=== PATIENT | male | born 1935 | race Caucasian/White ===

== ENCOUNTER 2018-06-04 15:29 | Outpatient (CLI) | payer MEDICARE, BC ==
[~2018-06-04] VITALS: Ht 177.8 cm; Wt 75.7 kg
[2018-06-04] MEDS ORDERED: albuterol 2.5 MG/3 ML nebule NEB PRN (15:45)
== END 2018-06-04 23:59 | disposition home or self-care (01) ==
LOC: RT 15:29
PROVIDERS: ATTEND Internal Medicine
DX: J44.9 Chronic obstructive pulmonary disease, unspecified (principal); Z87.891 Personal history of nicotine dependence
CPT/HCPCS: 94060; 94729; 94760

== ENCOUNTER 2021-11-22 11:48 | Emergency (ER) | payer MEDICARE, BC ==
[~2021-11-22] VITALS: Ht 177.8 cm; Wt 70.5 kg
[~2021-11-22 11:48] MED LIST: ALBU8.5H17 INH; FLO0.4C PO; FLUO60SO3 EACH EAR; FLUT1BLS10 PO; LEVO25TA7 PO; NETA2.5D3 RIGHTEYE; PANT-47 PO; TIOT18CA3 PO
[2021-11-22 12:18] VITALS: BP 102/56
--- NOTE | 2021-11-22 17:00 | NUR ---
PT WAS SEEN BY FRANCISCO SAEED EARLIER TODAY FOR LT ANKLE PAIN AND SWELLING. PT WAS DX WITH A LT DISTAL FIBULA FX AND PLACED IN A WALKING BOOT WITH INSTRUCTIONS TO CONTINUE HIS PHYSICAL THERAPY. DAUGHTER CALLED THIS AFTERNOON FROM [facility] STATING THAT THE PHYSICAL THERAPIST IS REQUESTING A NOTE STATING THAT PT CAN CONTINUE TO BE WEIGHT BARING. MONSTER LIM WAS INFORMED AND A NOTE WAS PROVIDED REQUESTED AND FAXED TO [facility] @
== END 2021-11-22 13:04 | disposition home or self-care (01) ==
LOC: ER 11:51
DX: S82.832A Other fracture of upper and lower end of left fibula, initial encounter for closed fracture (principal); M25.742 Osteophyte, left hand; J44.9 Chronic obstructive pulmonary disease, unspecified; F17.200 Nicotine dependence, unspecified, uncomplicated; Z86.73 Personal history of transient ischemic attack (TIA), and cerebral infarction without residual deficits; Z98.890 Other specified postprocedural states; Z88.8 Allergy status to other drugs, medicaments and biological substances; Z79.899 Other long term (current) drug therapy; X58.XXXA Exposure to other specified factors, initial encounter; Y93.89 Activity, other specified; Y92.89 Other specified places as the place of occurrence of the external cause; Y99.8 Other external cause status
CPT/HCPCS: 99284

== ENCOUNTER 2021-12-20 01:08 | Inpatient (IN) | payer MEDICARE, BC ==
[~2021-12-20] VITALS: Ht 177.8 cm; Wt 68.2 kg
[2021-12-20] MEDS ORDERED: methylPREDNISolone sod succ 125mg/2ml vial IV ONE (01:35)
[2021-12-20] MEDS ORDERED: ipratropium/albuterol 3ml nebule NEB ONE (01:35)
[2021-12-20] MEDS ORDERED: albuterol 2.5 MG/3 ML nebule CONTNEB PRN (01:35)
[2021-12-20 01:49] LABS: ABG BASE EXCESS 1.1 mmol/L (-2.0-2.0); ABG HCO3 28.2 mmol/L (22.0-26.0); ABG PCO2 (T) 55.3 mmHg (35.0-48.0); ABG PO2 (T) 56.9 mmHg (75.0-100.0); ALLEN'S TEST POSITIVE; FCOHb 0.5 % (0.0-3.9); FMetHb 0.2 % (0.0-1.5); FO2Hb 87.4 % (94-97); PATIENT TEMPERATURE 36.8; TOTAL HEMOGLOBIN 13.2 G/dl (14.0-18.0)
--- NOTE | 2021-12-20 02:00 | NUR ---
Daughter at bedside with patient.
[2021-12-20 02:01] LABS: BASOPHILS # (AUTO) 0.1 X10'3 (0-0.2); BASOPHILS % (AUTO) 0.4 % (0-1); EOSINOPHILS # (AUTO) 0.1 X10'3 (0-0.9); EOSINOPHILS % (AUTO) 0.7 % (0-6); HEMATOCRIT 37.7 % (42.0-52.0); HEMOGLOBIN 12.2 g/dl (14.0-17.9); LYMPHOCYTES # (AUTO) 0.7 X10'3 (1.1-4.8); LYMPHOCYTES % (AUTO) 5.5 % (21-51); MEAN CORPUSCULAR HEMOGLOBIN 30.2 PG (27.0-31.0); MEAN CORPUSCULAR HGB CONC 32.3 g/dL (33.0-36.5); MEAN CORPUSCULAR VOLUME 93.3 FL (78-98); MEAN PLATELET VOLUME 8.8 FL (7.4-10.4); MONOCYTES # (AUTO) 0.9 X10'3 (0-0.9); MONOCYTES % (AUTO) 7.7 % (2-12); NEUTROPHILS # (AUTO) 10.5 X10'3 (1.8-7.7); NEUTROPHILS % (AUTO) 85.7 % (42-75); PLATELET COUNT 284 X10'3 (140-440); RED BLOOD COUNT 4.04 X10'6 (4.70-6.10); RED CELL DISTRIBUTION WIDTH 15.4 % (11.5-14.5); WHITE BLOOD COUNT 12.2 X10'3 (4.5-11.0)
[2021-12-20 02:03] LABS: ALANINE AMINOTRANSFERASE 11 U/L (12-78); ALBUMIN 2.6 G/DL (3.4-5.0); ALBUMIN/GLOBULIN RATIO 0.6 (1.1-1.5); ANION GAP 8 (8-16); ASPARTATE AMINO TRANSFERASE 14 U/L (10-37); BILIRUBIN,TOTAL 0.2 MG/DL (0.1-1.0); BLOOD UREA NITROGEN 19 MG/DL (7-18); BUN/CREATININE RATIO 22.4 (5.4-32.0); CALCIUM 9.4 MG/DL (8.5-10.1); CHLORIDE 107 MMOL/L (99-107); CREATININE 0.85 MG/DL (0.60-1.10); GLUCOSE 146 MG/DL (70-104); SODIUM 142 MMOL/L (135-145); TOTAL CARBON DIOXIDE 27.4 MMOL/L (24-32); TOTAL PROTEIN 6.7 G/DL (6.4-8.2); eGFR 86 ML/MIN
[2021-12-20 02:04] LABS: POTASSIUM 4.3 MMOL/L (3.5-5.1)
[2021-12-20 02:08] LABS: ALKALINE PHOSPHATASE 61 IU/L (46-116)
[2021-12-20] MEDS ORDERED: normal saline 1000ML IV soln IVB ONE (02:55)
[2021-12-20 03:58] LABS: ABG BASE EXCESS 2.3 mmol/L (-2.0-2.0); ABG HCO3 27.9 mmol/L (22.0-26.0); ABG OXYGEN SATURATION 98.6 % (94-97); ABG PCO2 (T) 46.4 mmHg (35.0-48.0); ABG PO2 (T) 132.4 mmHg (75.0-100.0); ALLEN'S TEST POSITIVE; FCOHb 0.3 % (0.0-3.9); FMetHb 0.1 % (0.0-1.5); FO2Hb 98.2 % (94-97); PATIENT TEMPERATURE 36.7; RESPIRATORY RATE 10 b/min; TOTAL HEMOGLOBIN 13.1 G/dl (14.0-18.0)
[2021-12-20] MEDS ORDERED: mag hydrox/Alum hydrox/simeth 30ml oral suspension PO PRN (05:35)
[2021-12-20] MEDS ORDERED: ondansetron/PF 4mg/2ml inj IV PRN (05:35)
[2021-12-20] MEDS ORDERED: magnesium hydroxide 30ml (MOM) UD suspension PO PRN (05:35)
[2021-12-20] MEDS ORDERED: acetaminophen 325mg tablet PO PRN ×2 (05:35)
[2021-12-20] MEDS ORDERED: morphine 2 MG/ML inj. syringe IV PRN ×2 (05:35)
--- NOTE | 2021-12-20 05:42 | NUR ---
Patient refusing bipap, placed back on NC. MD and Respiratoy both paged.
[2021-12-20] MEDS: dextrose 5%-1/2 normal saline 1,000 ML IV SCH ×2 (06:28→12:03)
[2021-12-20] MEDS: enoxaparin 40mg/0.4ml syringe SUBCUT SCH (08:00)
[2021-12-20] MEDS: methylPREDNISolone sod succ 125mg/2ml vial IV SCH ×2 (08:18→23:19)
[2021-12-20] MEDS: docusate sod 100mg capsule PO SCH ×2 (08:18→23:20)
[2021-12-20] MEDS: levoFLOXACIN-Levaquin 750MG/D5 150 ML IV SCH (08:19)
[2021-12-20 11:00] VITALS: BP 134/73
[2021-12-20] MEDS: LORazepam 0.5 MG tablet PO PRN ×2 (11:58→19:09)
--- NOTE | 2021-12-20 13:15 | NUR ---
Spoke with MD Villeda - he will come see the patient later.
[2021-12-20] MEDS ORDERED: guaiFENesin 200 MG/10 ML oral syrup UD cup PO PRN (14:15)
[2021-12-20] MEDS ORDERED: bisacodyl 10mg suppository rectal RC PRN (14:15)
--- NOTE | 2021-12-20 14:16 | NUR ---
Per Dr Villeda. Ok to keep O2 between 88-92%, supp PRN, robitussin Q6H PRN, o to cont eye gtt, PT & Eval, vanilla boost TID With meals
[2021-12-20] MEDS ORDERED: SYSTANE EYE DROPS RIGHTEYE PRN (14:45)
[2021-12-20 15:00] VITALS: BP 108/59
[2021-12-20 18:00] VITALS: BP 148/81
[2021-12-20] MEDS: lactose-reduced food (Ensure Enlive) - 237ml bottle PO SCH (18:00)
--- NOTE | 2021-12-20 18:49 | NUR ---
Problems reprioritized. Patient report given, questions answered & plan of care reviewed with SANTO Cotter.
--- NOTE | 2021-12-20 19:18 | NUR ---
patient appears anxious, complaints of SOB. O2 sats WNL. RT called at patient ewquest for breathing tx. Atavan given per order.
[2021-12-20] MEDS: albuterol 2.5 MG/3 ML nebule NEB PRN ×3 (20:05→23:38)
[2021-12-20] MEDS: LATANOPROST RIGHTEYE SCH (21:00)
[2021-12-20] MEDS ORDERED: latanoprost 0.005% 2.5ml ophthalmic drops RIGHTEYE SCH (21:00)
[2021-12-20] MEDS: NETARSUDIL MESYLAT RIGHTEYE SCH (21:00)
[2021-12-20 22:00] VITALS: BP 129/69
[2021-12-21] MEDS: dextrose 5%-1/2 normal saline 1,000 ML IV SCH ×2 (00:01→12:14)
[2021-12-21 02:00] VITALS: BP 138/82
[2021-12-21] MEDS: albuterol 2.5 MG/3 ML nebule NEB PRN ×2 (03:41→10:42)
[2021-12-21 06:00] VITALS: BP 94/62
[2021-12-21] MEDS: lactose-reduced food (Ensure Enlive) - 237ml bottle PO SCH ×3 (08:00→18:00)
[2021-12-21] MEDS: enoxaparin 40mg/0.4ml syringe SUBCUT SCH (08:00)
[2021-12-21 08:02] LABS: BASOPHILS % (AUTO) 0.1 % (0-1); EOSINOPHILS % (AUTO) 0 % (0-6); HEMOGLOBIN 11.6 g/dl (14.0-17.9); LYMPHOCYTES # (AUTO) 0.6 X10'3 (1.1-4.8); LYMPHOCYTES % (AUTO) 4.1 % (21-51); MEAN CORPUSCULAR HEMOGLOBIN 30.2 PG (27.0-31.0); MEAN CORPUSCULAR HGB CONC 32.3 g/dL (33.0-36.5); MEAN CORPUSCULAR VOLUME 93.3 FL (78-98); MEAN PLATELET VOLUME 8.6 FL (7.4-10.4); MONOCYTES # (AUTO) 0.7 X10'3 (0-0.9); MONOCYTES % (AUTO) 5.3 % (2-12); NEUTROPHILS # (AUTO) 12.7 X10'3 (1.8-7.7); NEUTROPHILS % (AUTO) 90.5 % (42-75); PLATELET COUNT 318 X10'3 (140-440); RED BLOOD COUNT 3.86 X10'6 (4.70-6.10); RED CELL DISTRIBUTION WIDTH 15.6 % (11.5-14.5); WHITE BLOOD COUNT 14.1 X10'3 (4.5-11.0)
[2021-12-21 08:16] LABS: ALBUMIN 2.4 G/DL (3.4-5.0); ANION GAP 5 (8-16); BLOOD UREA NITROGEN 14 MG/DL (7-18); BUN/CREATININE RATIO 17.5 (5.4-32.0); CALCIUM 9.6 MG/DL (8.5-10.1); CHLORIDE 109 MMOL/L (99-107); GLUCOSE 171 MG/DL (70-104); POTASSIUM 4.5 MMOL/L (3.5-5.1); SODIUM 142 MMOL/L (135-145); TOTAL CARBON DIOXIDE 27.8 MMOL/L (24-32); eGFR > 90 ML/MIN
[2021-12-21] MEDS: levoFLOXACIN-Levaquin 750MG/D5 150 ML IV SCH (09:11)
[2021-12-21] MEDS: methylPREDNISolone sod succ 125mg/2ml vial IV SCH ×2 (09:12→22:17)
[2021-12-21] MEDS: docusate sod 100mg capsule PO SCH ×2 (09:12→22:18)
--- NOTE | 2021-12-21 09:24 | NUR ---
Pt refused lovenox - education provided and patient and patient dtr verbalized understanding.
[2021-12-21 11:00] VITALS: BP 159/84
[2021-12-21] MEDS: guaiFENesin ER 600mg tablet PO SCH ×2 (11:35→22:17)
--- NOTE | 2021-12-21 11:39 | NUR ---
Had to manually administer morphine IV 1 mg as the automated administered "timed out" and I already threw away the vile in the sharps container.
[2021-12-21] MEDS ORDERED: [UNRECOGNIZED DRUG - OTHER] EACH EAR PRN (13:05)
[2021-12-21] MEDS ORDERED: FLUOCINONIDE EACH EAR PRN (13:05)
[2021-12-21] MEDS: ipratropium/albuterol 3ml nebule IH SCH ×2 (14:48→19:23)
[2021-12-21 15:00] VITALS: BP 104/56
[2021-12-21 18:00] VITALS: BP 100/68
[2021-12-21] MEDS: budesonide 0.5mg/2ml UD nebule IH SCH (19:23)
[2021-12-21] MEDS: LATANOPROST RIGHTEYE SCH (21:00)
[2021-12-21] MEDS: NETARSUDIL MESYLAT RIGHTEYE SCH (21:00)
[2021-12-21 22:00] VITALS: BP 110/68
[2021-12-21] MEDS: pantoprazole 40mg Tablet.DR PO SCH (22:20)
[2021-12-21] MEDS: LORazepam 0.5 MG tablet PO PRN (22:39)
[2021-12-22 02:00] VITALS: BP 141/70
[2021-12-22] MEDS: albuterol 2.5 MG/3 ML nebule NEB PRN (03:21)
[2021-12-22 06:00] VITALS: BP 118/61
[2021-12-22 06:31] LABS: BASOPHILS % (AUTO) 0.1 % (0-1); EOSINOPHILS % (AUTO) 0 % (0-6); HEMATOCRIT 34.9 % (42.0-52.0); HEMOGLOBIN 11.4 g/dl (14.0-17.9); LYMPHOCYTES # (AUTO) 0.5 X10'3 (1.1-4.8); LYMPHOCYTES % (AUTO) 3.5 % (21-51); MEAN CORPUSCULAR HEMOGLOBIN 30.3 PG (27.0-31.0); MEAN CORPUSCULAR HGB CONC 32.7 g/dL (33.0-36.5); MEAN CORPUSCULAR VOLUME 92.6 FL (78-98); MEAN PLATELET VOLUME 8.1 FL (7.4-10.4); MONOCYTES % (AUTO) 6.6 % (2-12); NEUTROPHILS # (AUTO) 13.2 X10'3 (1.8-7.7); NEUTROPHILS % (AUTO) 89.8 % (42-75); PLATELET COUNT 339 X10'3 (140-440); RED BLOOD COUNT 3.78 X10'6 (4.70-6.10); RED CELL DISTRIBUTION WIDTH 15.4 % (11.5-14.5); WHITE BLOOD COUNT 14.7 X10'3 (4.5-11.0)
[2021-12-22 06:39] LABS: ALBUMIN 2.5 G/DL (3.4-5.0); ANION GAP 5 (8-16); BLOOD UREA NITROGEN 15 MG/DL (7-18); BUN/CREATININE RATIO 19.2 (5.4-32.0); CALCIUM 9.6 MG/DL (8.5-10.1); CHLORIDE 105 MMOL/L (99-107); CREATININE 0.78 MG/DL (0.60-1.10); GLUCOSE 129 MG/DL (70-104); POTASSIUM 4.2 MMOL/L (3.5-5.1); SODIUM 141 MMOL/L (135-145); TOTAL CARBON DIOXIDE 31.5 MMOL/L (24-32); eGFR > 90 ML/MIN
[2021-12-22] MEDS ORDERED: levoTHYROXINE 25mcg tablet PO SCH (07:00)
[2021-12-22] MEDS: budesonide 0.5mg/2ml UD nebule IH SCH (07:45)
[2021-12-22] MEDS: ipratropium/albuterol 3ml nebule IH SCH ×2 (07:45→11:01)
[2021-12-22] MEDS: lactose-reduced food (Ensure Enlive) - 237ml bottle PO SCH ×2 (08:00→13:42)
[2021-12-22] MEDS ORDERED: tamsulosin 0.4mg capsule PO SCH (08:00)
[2021-12-22] MEDS: enoxaparin 40mg/0.4ml syringe SUBCUT SCH (08:00)
[2021-12-22] MEDS: dextrose 5%-1/2 normal saline 1,000 ML IV SCH (08:14)
[2021-12-22] MEDS: levoFLOXACIN-Levaquin 750MG/D5 150 ML IV SCH (10:09)
[2021-12-22] MEDS: methylPREDNISolone sod succ 125mg/2ml vial IV SCH (10:10)
[2021-12-22] MEDS: pantoprazole 40mg Tablet.DR PO SCH (10:14)
[2021-12-22] MEDS: docusate sod 100mg capsule PO SCH (10:14)
[2021-12-22] MEDS: guaiFENesin ER 600mg tablet PO SCH (10:14)
[2021-12-22 11:00] VITALS: BP 100/51
--- NOTE | 2021-12-22 13:45 | NUR ---
Pt stable for transfer per MD order. Pts dtr was in room all morning. All personal belongings were taken by dtr and she will transport to [facility]. Called [facility] and gave report to Sheldon. Removed PIV - pt tolerated well. f/c was emptied prior to departure and pt was transported by transport company with transfer ppwk in hand. All questions answered at this time.
--- NOTE | 2021-12-22 14:00 | NUR ---
Pt has been able to reposition himself all day and daughter at bedside for most of that time.
== END 2021-12-22 13:46 | DRG 189 ==
LOC: ER 01:09 → ED HOLD 05:36 → PCU 3S 10:51
PROVIDERS: ADMIT Internal Medicine; ATTEND Internal Medicine
PROC: 5A0935A Assistance with Respiratory Ventilation, Less than 24 Consecutive Hours, High Flow/Velocity Cannula (ICD-10-PCS; principal; 2021-12-20)
PROC: 5A0935A Assistance with Respiratory Ventilation, Less than 24 Consecutive Hours, High Flow/Velocity Cannula (ICD-10-PCS; 2021-12-21)
PROC: 5A0935A Assistance with Respiratory Ventilation, Less than 24 Consecutive Hours, High Flow/Velocity Cannula (ICD-10-PCS; 2021-12-22)
DX: J96.21 Acute and chronic respiratory failure with hypoxia (principal); J18.9 Pneumonia, unspecified organism; J44.1 Chronic obstructive pulmonary disease with (acute) exacerbation; J44.0 Chronic obstructive pulmonary disease with (acute) lower respiratory infection; J96.22 Acute and chronic respiratory failure with hypercapnia; Z66 Do not resuscitate; N40.0 Benign prostatic hyperplasia without lower urinary tract symptoms; E03.9 Hypothyroidism, unspecified; Z79.899 Other long term (current) drug therapy; Z86.73 Personal history of transient ischemic attack (TIA), and cerebral infarction without residual deficits; Z99.81 Dependence on supplemental oxygen; Z87.891 Personal history of nicotine dependence; Z88.8 Allergy status to other drugs, medicaments and biological substances
CPT/HCPCS: 36415; 36600; 71045; 80048; 80053; 82803; 83880; 84484; 85018; 85025; 92508; 92616; 94640; 94660; 94760; 97161; 97530; 99291; 99292; G0378; J1956; J2270; J2405; J2930; J7030; J7042

== ENCOUNTER 2022-03-10 05:04 | Emergency (ER) | payer MEDICARE, BC ==
[~2022-03-10] VITALS: Ht 177.8 cm; Wt 83.0 kg
[2022-03-10 06:55] LABS: CLARITY,URINE SLIGHTLY CLOUDY (Clear); COLOR,URINE YELLOW (Yellow); GLUCOSE, URINE NEGATIVE (Neg); KETONES,URINE TRACE mg/dl (Neg); LEUKOCYTE ESTERASE ,URINE LARGE (Neg); NITRITES, URINE POSITIVE (Neg); OCCULT BLOOD,URINE TRACE-INTACT (Neg); PROTEIN,URINE NEGATIVE (Neg); UROBILINOGEN,URINE 0.2 E.U/dL (0.2-1.0)
[2022-03-10 06:58] LABS: UA COLLECTION TYPE CLN CATCH MIDSTREAM
[2022-03-10 07:03] LABS: ALANINE AMINOTRANSFERASE 12 U/L (12-78); ALBUMIN 3.3 G/DL (3.4-5.0); ALKALINE PHOSPHATASE 70 IU/L (46-116); ANION GAP 5 (8-16); ASPARTATE AMINO TRANSFERASE 26 U/L (10-37); BILIRUBIN,TOTAL 0.7 MG/DL (0.1-1.0); BLOOD UREA NITROGEN 12 MG/DL (7-18); CALCIUM 9.4 MG/DL (8.5-10.1); CHLORIDE 94 MMOL/L (99-107); CREATININE 0.75 MG/DL (0.60-1.10); GLUCOSE 107 MG/DL (70-104); SODIUM 124 MMOL/L (135-145); TOTAL CARBON DIOXIDE 24.9 MMOL/L (24-32); TOTAL PROTEIN 6.7 G/DL (6.4-8.2); eGFR > 90 ML/MIN
[2022-03-10 07:06] LABS: POTASSIUM 4.3 MMOL/L (3.5-5.1)
[2022-03-10 07:08] LABS: BASOPHILS % (AUTO) 0.2 % (0-1); EOSINOPHILS # (AUTO) 0.1 X10'3 (0-0.9); EOSINOPHILS % (AUTO) 0.6 % (0-6); HEMOGLOBIN 13.2 g/dl (14.0-17.9); LYMPHOCYTES # (AUTO) 0.8 X10'3 (1.1-4.8); LYMPHOCYTES % (AUTO) 6.7 % (21-51); MEAN CORPUSCULAR HEMOGLOBIN 31.4 PG (27.0-31.0); MEAN CORPUSCULAR HGB CONC 33.8 g/dL (33.0-36.5); MEAN CORPUSCULAR VOLUME 92.8 FL (78-98); MEAN PLATELET VOLUME 9.4 FL (7.4-10.4); MONOCYTES # (AUTO) 1.2 X10'3 (0-0.9); MONOCYTES % (AUTO) 10.2 % (2-12); NEUTROPHILS # (AUTO) 9.7 X10'3 (1.8-7.7); NEUTROPHILS % (AUTO) 82.3 % (42-75); PLATELET COUNT 227 X10'3 (140-440); RED CELL DISTRIBUTION WIDTH 15.4 % (11.5-14.5); WHITE BLOOD COUNT 11.8 X10'3 (4.5-11.0)
[2022-03-10 07:11] LABS: WBC CLUMPS,URINE MANY /HPF (NEGATIVE); WBC,URINE TNTC /HPF (0-4)
[2022-03-10 07:12] LABS: BACTERIA,URINE 2+ /HPF (Neg); RBC,URINE 0-2 /HPF (0-2)
[2022-03-10 07:13] LABS: SQUAMOUS EPITHELIAL CELL,UR FEW /LPF (FEW)
[2022-03-10] MEDS ORDERED: CefTRIAXone 2gm/D5W 50ml BAG 50 ML IV ONE (07:15)
[2022-03-10] MEDS ORDERED: normal saline 1000ML IV soln IVB ONE ×2 (07:30→09:40)
[2022-03-10 10:00] VITALS: BP 140/77
[2022-03-10] MEDS ORDERED: CEPH-585 PO (10:11)
== END 2022-03-10 12:01 | disposition home or self-care (01) ==
LOC: ER 05:05
DX: N39.0 Urinary tract infection, site not specified (principal); E87.1 Hypo-osmolality and hyponatremia; R06.02 Shortness of breath; J44.9 Chronic obstructive pulmonary disease, unspecified; Z86.73 Personal history of transient ischemic attack (TIA), and cerebral infarction without residual deficits; Z88.8 Allergy status to other drugs, medicaments and biological substances; Z79.2 Long term (current) use of antibiotics; Z79.899 Other long term (current) drug therapy
CPT/HCPCS: 36415; 71045; 80053; 81001; 83605; 84145; 84484; 85025; 87040; 87088; 93005; 96361; 96365; 99285; J0696; J7030; A4349; A4357

== ENCOUNTER 2023-04-17 08:27 | Day surgery (SDC) | payer MEDICARE, BC ==
[2023-04-11 15:56] LABS: BILIRUBIN,URINE NEGATIVE (Neg); CLARITY,URINE CLEAR (Clear); COLOR,URINE YELLOW (Yellow); GLUCOSE, URINE NEGATIVE (Neg); KETONES,URINE NEGATIVE (Neg); LEUKOCYTE ESTERASE ,URINE NEGATIVE (Neg); NITRITES, URINE NEGATIVE (Neg); OCCULT BLOOD,URINE NEGATIVE (Neg); PROTEIN,URINE NEGATIVE (Neg); UROBILINOGEN,URINE 0.2 E.U/dL (0.2-1.0)
[2023-04-11 16:00] LABS: BASOPHILS % (AUTO) 0.4 % (0-1); EOSINOPHILS # (AUTO) 0.1 X10'3 (0-0.9); EOSINOPHILS % (AUTO) 1.5 % (0-6); LYMPHOCYTES % (AUTO) 13.3 % (21-51); MEAN CORPUSCULAR HEMOGLOBIN 32.6 PG (27.0-31.0); MEAN CORPUSCULAR HGB CONC 33.2 g/dL (33.0-36.5); MEAN PLATELET VOLUME 8.9 FL (7.4-10.4); MONOCYTES # (AUTO) 0.6 X10'3 (0-0.9); MONOCYTES % (AUTO) 8.5 % (2-12); NEUTROPHILS # (AUTO) 5.7 X10'3 (1.8-7.7); NEUTROPHILS % (AUTO) 76.3 % (42-75); PRE OP HEMATOCRIT 46.4 % (42.0-52.0); PRE OP HEMOGLOBIN 15.4 g/dL (14.0-17.9); PRE OP PLATELET COUNT 211 X10'3 (140-440); PRE OP WHITE BLOOD COUNT 7.5 10'3 (4.8-10.8); RED BLOOD COUNT 4.74 X10'6 (4.70-6.10)
[2023-04-11 16:10] LABS: UA COLLECTION TYPE CLN CATCH MIDSTREAM
[2023-04-11 16:12] LABS: ALBUMIN 3.8 G/DL (3.4-5.0); ALBUMIN/GLOBULIN RATIO 1.2 (1.1-1.5); ALKALINE PHOSPHATASE 88 IU/L (46-116); BLOOD UREA NITROGEN 21 MG/DL (7-18); BUN/CREATININE RATIO 25.6 (10.0-20.0); CALCIUM 10.1 MG/DL (8.5-10.1); CHLORIDE 104 MMOL/L (99-107); CREATININE 0.82 MG/DL (0.60-1.10); PRE OP ALT 27 U/L (30-65); PRE OP ANION GAP 5 (8-16); PRE OP AST 18 U/L (10-37); PRE OP BILIRUB, TOTAL 0.4 MG/DL (0.0-1.0); PRE OP GLUCOSE 109 MG/DL (70-104); PRE OP POTASSIUM 4.2 MMOL/L (3.4-5.1); PRE OP SODIUM 139 MMOL/L (135-145); TOTAL CARBON DIOXIDE 30.5 MMOL/L (24-32); TOTAL PROTEIN 7.1 G/DL (6.4-8.2); eGFR 89 ML/MIN
[~2023-04-17] VITALS: Ht 172.7 cm; Wt 68.9 kg
[2023-04-17] VITALS (12 sets, daily range): BP systolic 106–141; BP diastolic 47–75; PULSE 77–104; RESP 13–18; TEMP 98.3; O2SAT 93–99
[~2023-04-17 08:27] MED LIST changes: +BUPIVAcaine/PF 2.5 mg/ml (0.25%) 30ml vial ONE; -FLUO60SO3 EACH EAR; +MULT-955 PO; -PANT-47 PO; +cefazolin 2gm/D5W 100mL 100 ML IV ONE; +famotidine 20mg tablet PO ONE; +ringers solution, lacted 1,000 ML IV SCH
[2023-04-17] MEDS ORDERED: ringers solution, lacted 1,000 ML IV SCH (09:05)
[2023-04-17] MEDS ORDERED: morphine 4 MG/ML inj SYRINge IV PRN (09:05)
[2023-04-17] MEDS ORDERED: morphine 2 MG/ML inj. syringe IV PRN (09:05)
[2023-04-17] MEDS ORDERED: enalaprilat dihydrate 2.5mg/2ml vial IV PRN (09:05)
[2023-04-17] MEDS ORDERED: labetalol 20mg/4ml (5mg/ml) syringe IV PRN (09:05)
[2023-04-17] MEDS ORDERED: meperidine/PF 25mg/ml syringe IV PRN ×3 (09:05)
[2023-04-17] MEDS ORDERED: ondansetron/PF 4mg/2ml inj IV PRN (09:05)
[2023-04-17] MEDS ORDERED: proCHLORperazine 10 MG/2 ml inj IV PRN (09:05)
[2023-04-17] MEDS ORDERED: ipratropium/albuterol 3ml nebule IH ONE (11:05)
[2023-04-17] MEDS ORDERED: ceFAZolin 1000mg inj ONE (11:06)
[2023-04-17] MEDS ORDERED: bacitracin 15gm ointment TP ONE (11:07)
[2023-04-17] MEDS ORDERED: fentaNYL/PF 50MCG/1 ML 2ML syringe ONE (11:10)
[2023-04-17] MEDS ORDERED: LIDOcaine 2% (20mg/ml) 5ml vial ONE (11:15)
[2023-04-17] MEDS ORDERED: midazolam 1 mg/ML 2ml injection ONE (11:15)
[2023-04-17] MEDS ORDERED: propofol inj 20 ML IV ONE (11:15)
[2023-04-17] MEDS ORDERED: ondansetron/PF 4mg/2ml inj ONE (11:27)
[2023-04-17] MEDS ORDERED: rocuronium 10mg/ml inj IV ONE (11:27)
[2023-04-17] MEDS ORDERED: dexamethasone sod phosphate 10mg/ml inj ONE (11:27)
[2023-04-17] MEDS ORDERED: sevoflurane 250ml liquid IH ONE (11:27)
[2023-04-17] MEDS ORDERED: acetaminophen 1,000mg/100ml IV 100 ML IV ONE (12:03)
[2023-04-17] MEDS ORDERED: BUPIVAcaine/PF 2.5 mg/ml (0.25%) 30ml vial IJ ONE (12:15)
--- NOTE | 2023-04-17 12:25 | NUR ---
Received from OR via [facility], accompanied by Anesthesiologist and report given by ARNULFO Anesthesiologist. PATIENT WAKING UP, NO S/S OF PAIN, V/S WNL, SCD ON , PIV 20G LEFT AC, DERMABONDED LAPS SITES CLOSED C/D/I TO ABDOMEN. Addendum: 04/17/23 at 1236 by Trever Mckenzie RN Amended: Links added.
--- NOTE | 2023-04-17 13:35 | NUR ---
ALL DISCHARGE CRITERIA HAS BEEN MET. VSS, PAIN AT A TOLERABLE LEVEL, ABLE TO SAFELY AMBULATE AND TRANSFER SELF. IV TAKEN OUT WITHOUT ANY COMPLICATIONS. ALL DISCHARGE INSTRUCTIONS COVERED WITH PATIENT AND ALL QUESTIONS ANSWERED. PATIENT TAKEN OUT VIA WHEELCHAIR WITH ALL BELONGINGS TO PERSONAL VEHICLE WHERE FAMILY DROVE PATIENT HOME. Addendum: 04/17/23 at 1346 by Trever Mckenzie RN Amended: Links added.
[2023-04-18] MEDS ORDERED: OXYC5CAP19 PO (13:21)
[2023-04-18] MEDS ORDERED: DOCU-148 PO (13:22)
[2023-04-18] MEDS ORDERED: FLUT1BLS13 INH (14:01)
[2023-04-18] MEDS ORDERED: NETA2.5D3 RIGHTEYE (14:01)
[2023-04-18] MEDS ORDERED: TIOT18CA3 IH (14:01)
[2023-04-18] MEDS ORDERED: LEVO25TA7 PO (14:01)
[2023-04-18] MEDS ORDERED: ALBU6.7H14 INH (14:01)
== END 2023-04-17 13:35 | disposition home or self-care (01) ==
LOC: PAS 08:27
PROVIDERS: ATTEND Surgery
DX: K42.0 Umbilical hernia with obstruction, without gangrene (principal); I10 Essential (primary) hypertension; K21.9 Gastro-esophageal reflux disease without esophagitis; N40.0 Benign prostatic hyperplasia without lower urinary tract symptoms; E03.9 Hypothyroidism, unspecified; J43.9 Emphysema, unspecified; M19.90 Unspecified osteoarthritis, unspecified site; Z86.73 Personal history of transient ischemic attack (TIA), and cerebral infarction without residual deficits; Z86.718 Personal history of other venous thrombosis and embolism; Z79.899 Other long term (current) drug therapy; Z87.891 Personal history of nicotine dependence; Z72.89 Other problems related to lifestyle; Z98.890 Other specified postprocedural states; Z96.642 Presence of left artificial hip joint; Z98.41 Cataract extraction status, right eye; Z98.42 Cataract extraction status, left eye; Z88.8 Allergy status to other drugs, medicaments and biological substances
CPT/HCPCS: 49594; 94640; J0131; J0690; J1100; J2250; J2405; J2704; J3010; J3490; J7030; J7120; Z7506; Z7512; 36415; 71046; 80053; 81003; 82948; 85025; 93005; A4215; A4618; A7000

== ENCOUNTER 2023-07-21 19:46 | Emergency (ER) | payer MEDICARE, BC ==
[~2023-07-21] VITALS: Ht 172.7 cm; Wt 68.2 kg
[~2023-07-21 19:46] MED LIST changes: +ALBU6.7H14 INH; -ALBU8.5H17 INH; -BUPIVAcaine/PF 2.5 mg/ml (0.25%) 30ml vial ONE; +DOCU-148 PO; -FLUT1BLS10 PO; +FLUT1BLS13 INH; +OXYC5CAP19 PO; +TIOT18CA3 IH; -TIOT18CA3 PO; -cefazolin 2gm/D5W 100mL 100 ML IV ONE; -famotidine 20mg tablet PO ONE; -ringers solution, lacted 1,000 ML IV SCH
[2023-07-21] MEDS ORDERED: HYDROcodone/acetaminophen 10/325mg tab PO ONE (22:35)
[2023-07-21] MEDS ORDERED: HYDR-3965 PO (23:57)
[2023-07-22 00:24] VITALS: BP 108/60; PULSE 90; RESP 16; TEMP 99.3; O2SAT 94
== END 2023-07-22 00:10 | disposition home or self-care (01) ==
LOC: ER 19:47
DX: M25.552 Pain in left hip (principal); J44.9 Chronic obstructive pulmonary disease, unspecified; Z88.8 Allergy status to other drugs, medicaments and biological substances; Z79.899 Other long term (current) drug therapy
CPT/HCPCS: 73502; 73552; 99284

== ENCOUNTER 2024-01-27 17:21 | Emergency (ER) | payer MEDICARE, BC ==
[~2024-01-27] VITALS: Ht 172.7 cm; Wt 68.2 kg
[~2024-01-27 17:21] MED LIST changes: -OXYC5CAP19 PO; +OXYC5CAP22 PO
[2024-01-27 18:08] LABS: BASOPHILS % (AUTO) 0.3 % (0-1); EOSINOPHILS # (AUTO) 0.2 X10'3 (0-0.9); EOSINOPHILS % (AUTO) 1.7 % (0-6); HEMATOCRIT 39.8 % (42.0-52.0); HEMOGLOBIN 13.3 g/dl (14.0-17.9); LYMPHOCYTES # (AUTO) 1.1 X10'3 (1.1-4.8); MEAN CORPUSCULAR HEMOGLOBIN 30.5 PG (27.0-31.0); MEAN CORPUSCULAR HGB CONC 33.5 g/dL (33.0-36.5); MEAN PLATELET VOLUME 7.3 FL (7.4-10.4); MONOCYTES # (AUTO) 0.7 X10'3 (0-0.9); MONOCYTES % (AUTO) 7.1 % (2-12); NEUTROPHILS # (AUTO) 7.7 X10'3 (1.8-7.7); NEUTROPHILS % (AUTO) 79.9 % (42-75); PLATELET COUNT 312 X10'3 (140-440); RED BLOOD COUNT 4.37 X10'6 (4.70-6.10); RED CELL DISTRIBUTION WIDTH 15.1 % (11.5-14.5); WHITE BLOOD COUNT 9.7 X10'3 (4.5-11.0)
[2024-01-27 18:15] LABS: ALBUMIN 3.1 G/DL (3.4-5.0); ANION GAP 9 (8-16); BLOOD UREA NITROGEN 13 MG/DL (7-18); CALCIUM 9.5 MG/DL (8.5-10.1); CHLORIDE 101 MMOL/L (99-107); GLUCOSE 116 MG/DL (70-104); SODIUM 137 MMOL/L (135-145); TOTAL CARBON DIOXIDE 26.9 MMOL/L (24-32); eCRCL 50 ML/MIN; eGFR 71 ML/MIN
[2024-01-27 19:51] LABS: BILIRUBIN,URINE NEGATIVE (Neg); CLARITY,URINE CLEAR (Clear); COLOR,URINE STRAW (Yellow); GLUCOSE, URINE NEGATIVE (Neg); KETONES,URINE NEGATIVE (Neg); LEUKOCYTE ESTERASE ,URINE NEGATIVE (Neg); NITRITES, URINE NEGATIVE (Neg); OCCULT BLOOD,URINE NEGATIVE (Neg); PROTEIN,URINE NEGATIVE (Neg); UROBILINOGEN,URINE 0.2 E.U/dL (0.2-1.0)
[2024-01-27 19:56] LABS: UA COLLECTION TYPE CLN CATCH MIDSTREAM
[2024-01-27] MEDS: acetaminophen 325mg tablet PO ONE (20:36)
[2024-01-28 03:43] VITALS: BP 140/74; PULSE 89; RESP 18; TEMP 98.7; O2SAT 90
== END 2024-01-28 03:44 | disposition home or self-care (01) ==
LOC: ER 17:22
DX: R53.1 Weakness (principal); J44.9 Chronic obstructive pulmonary disease, unspecified; Z88.8 Allergy status to other drugs, medicaments and biological substances; Z79.899 Other long term (current) drug therapy; Z86.73 Personal history of transient ischemic attack (TIA), and cerebral infarction without residual deficits
CPT/HCPCS: 36415; 71045; 80048; 81003; 83605; 84145; 85025; 87040; 93005; 99285

== ENCOUNTER 2024-11-29 15:35 | Inpatient (IN) | payer MEDICARE, BC ==
[~2024-11-29] VITALS: Ht 172.7 cm; Wt 70.5 kg
[~2024-11-29 15:35] MED LIST changes: -FLO0.4C PO; +TAMS-55 PO
[2024-11-29] MEDS ORDERED: PANT-47 PO (16:00)
--- NOTE | 2024-11-29 16:23 | Physician Documentation ---
History of Present Illness ~ Chief Complaint: Shortness of Breath Stated Complaint: SOB Time Seen by MD: 15:50 Primary Medical Doctor: Dr. Espino Mode of Arrival: EMS HPI 89-year-old male presents to the ED with a complaint of 2-3 weeks of increasing shortness of breath. Patient states that he was a long-time COPD with 20 5% lung capacity left. He adds that when he he is on oxygen and at rest he does quite well however even when he is on oxygen and he gets up to complete ADLs he gets quickly out of breath. As this is a new change in his status. Additionally he has left lower extremity edema which has been going on for the last two months. He was not currently taking any diuretics it was not been evaluated for it as well Medication Reconciliation Allergies: Coded Allergies: quinine (Unverified Allergy, Unknown, LOW PLATLET COUNT., 07/21/23) Scheduled Fluticasone Propion/Salmeterol (Fluticasone-Salmeterol 250-50), 1 PUFFS INH BID, (Reported) Levothyroxine Sodium (Levothyroxine Sodium), 1 TAB PO QAM, (Reported) Multivitamin (Daily Value), 1 TAB PO DAILY, (Reported) Netarsudil Mesylat/Latanoprost (Rocklatan 0.02%-0.005% Eye Drp), 1 DROP RIGHTEYE HS, (Reported) Tamsulosin Hcl* (Flomax*), 1 CAP PO DAILY, (Reported) Tiotropium Dawson (Spiriva), 2 PUFFS IH QAM, (Reported) Scheduled PRN Albuterol Sulfate (Proventil Hfa), 2 PUFFS INH Q4H PRN for SOB or wheezing, (Reported) Docusate Sodium (Colace), 1 CAP PO Q12H PRN for constipation, (Reported) Miscellaneous Medications Pantoprazole Sodium (PROTONIX tablet), 40 MG PO, (Reported) Discontinued Medications Oxycodone HCl (Oxycodone HCl), 1 CAP PO Q4H PRN for pain, (Reported) Discontinued Reason: patient no longer taking Past Medical History Past Medical History: CVA/TIA/Stroke, COPD, *MUSCULOSKELETAL* Past Surgical History: orthopedic surgeries Patient History: Hypertension in mother Alcohol Use: Rarely Drug Use: none Lives with: Family Lives In: Assisted Care Physical Exam Vital Signs: Temperature: 97.7, Source: Oral, Heart Rate: 101, Respiratory Rate: 20, BP: 124/74, Pulse Oximetry: 97, Weight: 70.500 Oxygen Flow Rate: 2.0 Physical Exam General: Alert, no apparent distress. . Respiratory: Lungs clear, no respiratory distress. Extremities: Left lower extremity 3+ pitting edema. Pain with palpation, no erythema. Neurologic: Oriented x4. Psychiatric: Normal mood and affect. Skin: Normal color, warm and dry. No edema, no ecchymosis. Progress Results/Orders Results/Orders Orders - KIP WHEAT DRAWING OPERATOR Chest,Single View (11/29/24 16:35) Monitor (11/29/24 16:18) Saline Lock (11/29/24 16:18) Oxygen (11/29/24 16:18) Electrocardiogram (11/29/24 16:18) Hs Troponin I W Calculations (11/29/24 18:18) Hs Troponin I W Calculations (11/29/24 19:18) Vl Venous (11/29/24 16:23) Page Hospitalist (11/29/24 17:04) Fill Out Med Reconciliation (11/29/24 17:04) Completed Orders - KIP WHEAT DRAWING OPERATOR Chest,Single View (11/29/24 16:35) Cbc/Diff (11/29/24 16:18) PBNP (11/29/24 16:18) CMP (11/29/24 16:18) Hs Troponin I W Calculations (11/29/24 16:18) Vl Venous (11/29/24 16:23) Furosemide 40mg Inj (Lasix Inj) (11/29/24 17:10) Hgb A1c (11/29/24 15:45) D-Dimer (11/29/24 17:48) Medications Received in ER Medications (Trade) Dose Ordered Sig/Sumit Route PRN Reason Start Time Stop Time Status Last Admin Dose Admin (Lasix inj) 40 mg ONCE ONCE IV 11/29/24 17:10 11/29/24 17:11 DC 11/29/24 17:36 40 MG Sodium Chloride 1,000 ml @ 20 mls/hr Q48H IV 11/29/24 17:15 11/29/24 17:37 20 MLS/HR Vital Signs 11/29/24 11/29/24 11/29/24 11/29/24 15:40 15:47 16:00 18:23 Temp 97.7 Pulse 53 101 99 Resp 15 18 20 19 B/P (MAP) 138/107 124/74 (91) 126/110 (115) Pulse Ox 98 97 96 O2 Flow Rate 2.0 2.0 Laboratory Tests Test 11/29/24 15:45 White Blood Count 7.6 Red Blood Count 4.59 L Hemoglobin 14.6 Hematocrit 44.2 Mean Corpuscular Volume 96.4 Mean Corpuscular Hemoglobin 31.9 H Mean Corpuscular Hemoglobin Concent 33.0 Red Cell Distribution Width 14.6 H Platelet Count 209 Mean Platelet Volume 8.3 Neutrophils (%) (Auto) 81.4 H Lymphocytes (%) (Auto) 9.7 L Monocytes (%) (Auto) 7.7 Eosinophils (%) (Auto) 1.0 Basophils (%) (Auto) 0.2 Neutrophils # (Auto) 6.2 Lymphocytes # (Auto) 0.7 L Monocytes # (Auto) 0.6 Eosinophils # (Auto) 0.1 Basophils # (Auto) 0.0 CBC Comment D-Dimer 7.83 H D-Dimer Comment Sodium Level 140 Potassium Level 4.8 Chloride Level 104 Carbon Dioxide Level 26.0 Anion Gap 10 Blood Urea Nitrogen 23 H Creatinine 1.07 Estimated GFR/1.73 m2 65 BUN/Creatinine Ratio 21.5 H Glucose Level 105 H Hemoglobin A1c 5.8 Calcium Level 9.1 Total Bilirubin 0.4 Aspartate Amino Transf (AST/SGOT) 30 Alanine Aminotransferase (ALT/SGPT) 15 Alkaline Phosphatase 1335 H Troponin I High Sensitivity 17 Pro-B-Type Natriuretic Peptide 1826 H Total Protein 6.9 Albumin 3.3 L Globulin 3.6 Albumin/Globulin Ratio 0.9 L Chemistry Comments Medical Decision Making Findings Due to the patient's increased shortness of breath and suspected acute CHF exacerbation I am recommending hospital admission. ProBNP is elevated and his lower extremity edema are both concerning we will be starting him on Lasix and contact in the hospitalist Differential Dx:Considerations: Include: anxiety, asthma, bronchitis, cardiogenic shock, CHF, COPD, dysrhythmia, hypertension, accelerated, hypertension, essential, hypertension, malignant, hyperventilation, hyponatremia, myocardial infarction, panic attack, pneumonia, pneumonitis, pneumothorax, PSVT, pulmonary embolism, respiratory distress, respiratory failure, sinusitis, upper resp. infection, other Departure Disposition: ADMITTED INPATIENT Impression: Primary Impression: Congestive cardiac failure Additional Impression: Swelling of extremity Referrals: NO PRIMARY CARE PROVIDER (PCP) Signature Scribe Signature: v Attestation: The note accurately reflects work and decisions made by me.Kip Villalobos NP 11/29/24 17:07 KIP WHEAT NP Nov 29, 2024 16:23
[2024-11-29 16:33] LABS: BASOPHILS % (AUTO) 0.2 % (0-1); EOSINOPHILS # (AUTO) 0.1 X10'3 (0-0.9); HEMATOCRIT 44.2 % (42.0-52.0); HEMOGLOBIN 14.6 g/dl (14.0-17.9); LYMPHOCYTES # (AUTO) 0.7 X10'3 (1.1-4.8); LYMPHOCYTES % (AUTO) 9.7 % (21-51); MEAN CORPUSCULAR HEMOGLOBIN 31.9 PG (27.0-31.0); MEAN CORPUSCULAR VOLUME 96.4 FL (78-98); MEAN PLATELET VOLUME 8.3 FL (7.4-10.4); MONOCYTES # (AUTO) 0.6 X10'3 (0-0.9); MONOCYTES % (AUTO) 7.7 % (2-12); NEUTROPHILS # (AUTO) 6.2 X10'3 (1.8-7.7); NEUTROPHILS % (AUTO) 81.4 % (42-75); PLATELET COUNT 209 X10'3 (140-440); RED BLOOD COUNT 4.59 X10'6 (4.70-6.10); RED CELL DISTRIBUTION WIDTH 14.6 % (11.5-14.5); WHITE BLOOD COUNT 7.6 X10'3 (4.5-11.0)
--- NOTE | 2024-11-29 16:49 | RADIOLOGY REPORT ---
CHEST RADIOGRAPH Indication: CP Technique: Single frontal view of the chest was obtained Comparison: DI CHEST,SINGLE VIEW on DOS: 01/27/24, DI CHEST,SINGLE VIEW on DOS: 04/22/23, DI CHEST,SING LE VIEW on DOS: 04/19/23 FINDINGS: Lines and Tubes: None Lungs: Improving atelectasis left lung base Pleura: No effusion. No pneumothorax. Cardiomediastinal contours: Unremarkable Bones: No acute osseous abnormality. IMPRESSION: 1. Improving atelectasis left lung base compared to 01/27/2024. HS:Y
[2024-11-29 16:50] LABS: ALANINE AMINOTRANSFERASE 15 U/L (12-78); ALBUMIN 3.3 G/DL (3.4-5.0); ALBUMIN/GLOBULIN RATIO 0.9 (1.1-1.5); ANION GAP 10 (8-16); ASPARTATE AMINO TRANSFERASE 30 U/L (10-37); BILIRUBIN,TOTAL 0.4 MG/DL (0.1-1.0); BLOOD UREA NITROGEN 23 MG/DL (7-18); BUN/CREATININE RATIO 21.5 (10.0-20.0); CALCIUM 9.1 MG/DL (8.5-10.1); CHLORIDE 104 MMOL/L (99-107); CREATININE 1.07 MG/DL (0.60-1.10); GLUCOSE 105 MG/DL (70-104); POTASSIUM 4.8 MMOL/L (3.5-5.1); PRO BRAIN NATRIURETIC PEPTIDE 1826 PG/ML (0-450); SODIUM 140 MMOL/L (135-145); TOTAL PROTEIN 6.9 G/DL (6.4-8.2); eCRCL 46 ML/MIN; eGFR 65 ML/MIN
[2024-11-29 16:51] LABS: ALKALINE PHOSPHATASE 1335 IU/L (46-116)
[2024-11-29] MEDS ORDERED: furosemide 10 MG/1 ML 10ml inj IV ONE (17:05)
[2024-11-29] MEDS ORDERED: acetaminophen 325mg tablet PO PRN (17:15)
[2024-11-29] MEDS ORDERED: potassium Cl 20 mEq SR tablet PO PRN ×2 (17:15)
[2024-11-29] MEDS ORDERED: mag hydrox/Alum hydrox/simeth 30ml oral suspension PO PRN (17:15)
[2024-11-29] MEDS ORDERED: magnesium sulf-water 4G/100mL 100 ML IV PRN (17:15)
[2024-11-29] MEDS ORDERED: potassium Cl 40MEQ/1/2NS 520ml 520 ML IV PRN (17:15)
[2024-11-29] MEDS ORDERED: magnesium Cl slow-release 64mg tablet PO PRN (17:15)
[2024-11-29] MEDS ORDERED: magnesium sulf-water 2g/50mL 50 ML IV PRN (17:15)
[2024-11-29] MEDS: furosemide 40mg/4ml inj IV ONE (17:36)
[2024-11-29] MEDS: normal saline 1000ml 1,000 ML IV SCH (17:37)
--- NOTE | 2024-11-29 17:43 | VASCULAR REPORT ---
HISTORY: Left lower extremity swelling COMPARISON: None TECHNIQUE: Duplex Doppler evaluation of the deep venous system of the left lower extremity from the c ommon femoral veins, superficial femoral vein, great saphenous vein, deep femoral vein, popliteal vei n, and calf veins, including color Doppler and spectral/pulsed waveform analysis, was performed. FINDINGS: Right: - Common femoral vein: Compressible Left: - Common femoral vein: Compressible - Deep femoral vein: Compressible - Femoral vein: Compressible - Popliteal vein: Compressible - Peroneal vein: Compressible - Posterior tibial vein: Compressible Other: Subcutaneous edema IMPRESSION: 1. No left lower extremity deep venous thrombosis.
[2024-11-29 17:48] LABS: HEMOGLOBIN A1C 5.8 % (4.5-6.2)
--- NOTE | 2024-11-29 18:04 | HISTORY AND PHYSICAL-Residence ---
History & Physical Providers to CC Resident Creating Document: RAMONE IGNACIO, RES ~ History of Present Illness Primary Medical Doctor: Gianna Peacock NP. PSYCHIATRIC Reason for Admit\Complaint: Shortness of breath History of Present Illness 89-year-old male patient with past medical history of COPD, hypothyroidism, benign prostatic hyperplasia came to the hospital with chief complaint of shortness of breaths. Patient mentioned that he had a diagnosed history of COPD with 25% lung capacity left diagnosed 10 years ago. The patient mentioned that during the last 3-4 days ago he started having increase difficulty for breathing, prompting him to start using oxygen 2 L. he mentioned that regularly has been using oxygen at home for several years on and off, at the same time he also endorses a chronic cough but the last week he has been coughing more frequently and spitting up a yellowish sputum. He mentioned that he sleeps with one pillow, normally he is able to walk 40 ft before he gets short of breath, since the last week has been able to walk four steps. Associated to these symptom the patient also mentioned left lower extremity swelling which started two months ago, after the physical exam redness and some crusts were noticed and the patient endorses that he has been taking his skin off and scratching. The patient currently denies chest pain, palpitations, urinary or intestinal symptoms. Allergies: Coded Allergies: quinine (Unverified Allergy, Unknown, LOW PLATLET COUNT., 07/21/23) Home Medications Home Medications Active Reported PROTONIX tablet (Pantoprazole Sodium) 40 Mg Tablet.dr 40 Mg PO Proventil Hfa (Albuterol Sulfate) 90 Mcg Hfa.aer.ad 2 Puffs INH Q4H PRN Rocklatan 0.02%-0.005% Eye Drp (Netarsudil Mesylat/Latanoprost) 0.02 %-0.005 % Drops 1 Drop RIGHTEYE HS Levothyroxine Sodium 25 Mcg Tablet 1 Tab PO QAM Fluticasone-Salmeterol 250-50 (Fluticasone Propion/Salmeterol) 250 Mcg-50 Mcg/Dose Blst.w.dev 1 Puffs INH BID Spiriva (Tiotropium [place]) 18 Mcg Cap.w.dev 2 Puffs IH QAM Colace (Docusate Sodium) 100 Mg Capsule 1 Cap PO Q12H PRN Daily Value (Multivitamin) 1 Each Tablet 1 Tab PO DAILY 30 Days Flomax* (Tamsulosin HCl) 0.4 Mg Cap.sr.24h 1 Cap PO DAILY 30 Days Past Medical History Past Medical History Hypothyroidism. COPD diagnosed 10 years ago. BPH. Past Surgical History Surgical History Comment Prostate surgery for BPH. Left hip orthopedic surgery in 2021 and 2nd surgery in 2022 in the same level. Ventral Hernia surgical repair between [id number]. Family History Family History: Hypertension in mother Past Social History Smoking: Quit less than 1 year (The patient quit smoking in 2023. 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 HEENT: Conjunctive are pink, sclerae clear, no icterus, pupil is equal in both sides, reactive to light, no ear discharge, no pharyngeal erythema or an edema. Neck: Supple, no JVD, no lymphadenopathy and thyromegaly. Chest: Equal air entry on both lungs, presence of mild diffuse wheezing bilaterally. Cardiovascular: S1-S2 regular sinus rhythm and, regular rate, no gallops, no rubs, no murmurs Abdomen: No visible peristalsis, Bowel sounds present on auscultation, soft, nontender, no guarding, no rigidity, ventral hernia reducible is evidenced. Extremities: No obvious deformities, 3+ pedal edema in left lower extremity, associated redness and warm to the touch,, capillary refill intact, peripheral pulsations are intact on both sides Central Nervous System: No focal neurological deficits, no motor or sensory weakness in all 4 extremities, could move all 4 extremities, 2+ deep tendon reflexes, negative Babinski. Musculoskeletal: No joint swelling, deformities, inflammations, and no scoliosis and back tenderness Skin: 3+ pedal edema edema in left lower extremity associated with redness and warm to touch. Diagnostic Data Last Recorded Lab Results: 11/29/24 1545 11/29/24 1545 Additional Plan Assessment and plan: 89 years old male patient came to the hospital with chief complaint of shortness of breaths, left lower extremity swelling. Multifactorial acute on chronic hypoxemic respiratory failure: Acute exacerbation of COPD: Possible congestive heart failure: Well's score 4.5: The patient came to the hospital with chief complaint of shortness of breaths and left lower extremity swelling. On physical exam mild diffuse wheezing bilaterally is evidenced. The patient usually uses 2 L of oxygen at home on and off, lately he has been using oxygen all the time. D-dimer 7.83. Follow-up COVID-19, influenza type a and B. Follow-up CTA of the chest. Ceftriaxone 1 g daily. Azithromycin 500 mg daily. Incentive spirometry every 2 hours while awake. Culturelle [address] mmu b.i.d. DuoNeb q.4h hours PRN. DuoNeb q.6h scheduled. Methylprednisolone 125 IV mg one dose. Methylprednisolone 60 mg b.i.d. Lasix 40 mg IV daily. Left lower extremity swelling: Superimposed bacterial cellulitis: DVT-ruled out: The patient endorses that he was taking out his skin. Redness, warm to the touch and 3+ pedal edema were evidenced on physical exam. Vascular ultrasound: The left lower extremity deep venous thrombosis. Follow-up procalcitonin, blood cultures. Ceftriaxone 1 g daily. Saman area of redness. Hyperglycemia: Prediabetes: Glucose levels 105. Hemoglobin A1c 5.8. Continue monitoring glucose levels. Hypothyroidism: Follow-up TSH. We will continue levothyroxine 25 mcg daily. BPH: Continue tamsulosin 0.4 mg daily. GERD: Pantoprazole 40 mg daily. Code status: Full code DVT prophylaxis: SCDs Analgesia/sedation: None Line/tube: PIV GI prophylaxis: Protonix Nutrition: Regular diet PT: Yes Prognosis: Guarded Disposition: Admission to ortho floor. Ramone Iqbal Internal Medicine Resident [facility] Date of Service: Nov 29, 2024 Billing Provider: CLARISSA REDDY MD,RAMONE LUEVANO, RES Nov 29, 2024 18:04
[2024-11-29] MEDS ORDERED: ipratropium/albuterol 3ml nebule NEB PRN (18:15)
[2024-11-29 18:18] LABS: D-DIMER 7.83 MG/L FEU (0-0.50)
[2024-11-29] MEDS ORDERED: iohexol 350MG/ML 100ml bottle IV ONE (18:41)
[2024-11-29 18:59] LABS: BILIRUBIN,URINE NEGATIVE (Neg); CLARITY,URINE CLEAR (Clear); COLOR,URINE YELLOW (Yellow); GLUCOSE, URINE NEGATIVE (Neg); KETONES,URINE 15 mg/dl (Neg); LEUKOCYTE ESTERASE ,URINE NEGATIVE (Neg); NITRITES, URINE NEGATIVE (Neg); OCCULT BLOOD,URINE NEGATIVE (Neg); PH,URINE 5.5 (4.8-8.0); PROTEIN,URINE NEGATIVE (Neg); UROBILINOGEN,URINE 0.2 E.U/dL (0.2-1.0)
[2024-11-29 19:00] LABS: UA COLLECTION TYPE CLN CATCH MIDSTREAM
[2024-11-29] MEDS: azithromycin 250mg tablet PO SCH (19:11)
[2024-11-29] MEDS: methylPREDNISolone sod succ/PF 40mg inj. IV ONE (19:12)
[2024-11-29 19:14] LABS: C-REACTIVE PROTEIN 3.22 MG/DL (0.0-0.5); THYROID STIMULATING HORMONE 2.38 ulU/ml (0.34-4.50)
[2024-11-29] MEDS: normal saline 500ml IV soln 500 ML IV ONE (19:18)
[2024-11-29 19:56] LABS: RSV LAB CLEARVIEW AG NEGATIVE (NEGATIVE)
[2024-11-29] MEDS: K and/or MAG REPLACEMENT MC SCH (20:00)
[2024-11-29] MEDS: ipratropium/albuterol 3ml nebule NEB SCH (20:15)
[2024-11-29 20:17] VITALS: PULSE 97; RESP 18; O2SAT 98
[2024-11-29 20:23] VITALS: PULSE 97; RESP 18
--- NOTE | 2024-11-29 20:50 | RADIOLOGY REPORT ---
Clinical History Shortness of breath Comparison None Technique: Contiguous axial CT images of the chest, abdomen, and pelvis after intravenous contrast ad ministration. Coronal and sagittal reformation was performed. MIPS reconstruction was performed in multiple planes. All CT scans at this medical facility are performed using dose modulation techniques as appropriate t o a performed exam including the following: Automated exposure control was utilized; adjustment of th e mA and/or kV according to patient size; and use of iterative reconstruction technique. All CT studies are reported to the Dose Index Registry of the [employer]. 3D images be reconstructed or obtained with maximum intensity projection postprocessing (MIP), volume rendered or other 3D technique. Contrast: OMNIPAQUE 350, 100ML Radiation Dose: CTDI (mGy): 10.91; DLP (mGy-cm): 433.79 CATHLEEN INFANTE, [id number] Findings: No intraluminal filling defect is in the pulmonary main, lobar, segmental, or subsegmental arteries. The thoracic aorta shows normal diameter and course. Both lungs show mild centrilobular for, most pronounced in the apices. No pneumothorax or pleural ef fusion is present. The trachea and central bronchi are patent. The heart is not enlarged. The coronary arteries show mild calcified atherosclerosis. No pericardia l effusion or lymphadenopathy is present. The abdominal aorta shows normal course and diameter. The liver, gallbladder, spleen, both adrenal glands, and pancreas are normal. The left kidney shows moderate hydronephrosis and hydroureter. The left mid ureter shows a somewhat abrupt caliber change adjacent to some enlarged lymph nodes. The right kidney is normal. No right h ydronephrosis or ureteral stone is present. Multiple prominent to enlarged lymph nodes are in the retroperitoneum and left pelvis. The largest i s a 21 mm short axis left external iliac node. Multiple diverticula are in the descending and sigmoid colon. A moderate amount of stool is in the c olon. The stomach, small bowel, and colon show otherwise normal caliber and wall thickness. The soren endix is normal. A fat-containing ventral hernia is present. No free air, free fluid, or inflammatory changes are in the abdomen or pelvis. The urinary bladder contains a diverticulum in the left posterior aspect adjacent to the UVJ but show s otherwise no wall thickening. Numerous variably sized sclerotic lesions are present throughout the axial and proximal appendicular skeleton Post left total hip arthroplasty surgical changes are present. No acute fracture is in the imaged portion of the skeleton. Impression: 1. No pulmonary embolus, thoracic aortic dissection, or thoracic aortic aneurysm. 2. Retroperitoneal and left pelvic lymphadenopathy and numerous sclerotic bony lesions concerning fo r metastases. 3. Moderate left hydronephrosis with a possible left mid ureteral stenosis. 4. Colonic diverticulosis. 5. A moderate amount of stool in the colon may represent constipation. 6. Centrilobular emphysema. This report was electronically signed by Severo Hylton MD on 11/29/2024 8:47:01 PM.
--- NOTE | 2024-11-29 20:50 | RADIOLOGY REPORT ---
Clinical History Hydronephrosis Comparison CT ABD/PEL on 04/18/2023, 369 images. Technique: Contiguous axial CT images of the chest, abdomen, and pelvis after intravenous contrast ad ministration. Coronal and sagittal reformation was performed. All CT scans at this medical facility are performed using dose modulation techniques as appropriate t o a performed exam including the following: Automated exposure control was utilized; adjustment of th e mA and/or kV according to patient size; and use of iterative reconstruction technique. All CT studies are reported to the Dose Index Registry of the [employer]. Without Contrast Radiation Dose: CTDI (mGy): 17.98; DLP (mGy-cm): 1195.60 CATHLEEN INFANTE, [id number] Findings: No intraluminal filling defect is in the pulmonary main, lobar, segmental, or subsegmental arteries. The thoracic aorta shows normal diameter and course. Both lungs show mild centrilobular for, most pronounced in the apices. No pneumothorax or pleural ef fusion is present. The trachea and central bronchi are patent. The heart is not enlarged. The coronary arteries show mild calcified atherosclerosis. No pericardia l effusion or lymphadenopathy is present. The abdominal aorta shows normal course and diameter. The liver, gallbladder, spleen, both adrenal glands, and pancreas are normal. The left kidney shows moderate hydronephrosis and hydroureter. The left mid ureter shows a somewhat abrupt caliber change adjacent to some enlarged lymph nodes. The right kidney is normal. No right h ydronephrosis or ureteral stone is present. Multiple prominent to enlarged lymph nodes are in the retroperitoneum and left pelvis. The largest i s a 21 mm short axis left external iliac node. Multiple diverticula are in the descending and sigmoid colon. A moderate amount of stool is in the c olon. The stomach, small bowel, and colon show otherwise normal caliber and wall thickness. The soren endix is normal. A fat-containing ventral hernia is present. No free air, free fluid, or inflammatory changes are in the abdomen or pelvis. The urinary bladder contains a diverticulum in the left posterior aspect adjacent to the UVJ but show s otherwise no wall thickening. Numerous variably sized sclerotic lesions are present throughout the axial and proximal appendicular skeleton Post left total hip arthroplasty surgical changes are present. No acute fracture is in the imaged portion of the skeleton. Impression: 1. No pulmonary embolus, thoracic aortic dissection, or thoracic aortic aneurysm. 2. Retroperitoneal and left pelvic lymphadenopathy and numerous sclerotic bony lesions concerning fo r metastases. 3. Moderate left hydronephrosis with a possible left mid ureteral stenosis. 4. Colonic diverticulosis. 5. A moderate amount of stool in the colon may represent constipation. 6. Centrilobular emphysema. This report was electronically signed by Severo Hylton MD on 11/29/2024 8:47:28 PM.
[2024-11-29 21:00] VITALS: BP 113/69; PULSE 113; RESP 20; TEMP 97.7; O2SAT 95
[2024-11-29] MEDS: lactobacillus rhamnosus 10,000 MMU CELLS/CAPSULE PO SCH (21:09)
[2024-11-29] MEDS: docusate sod 100mg capsule PO SCH (21:09)
[2024-11-29] MEDS: tamsulosin 0.4mg capsule PO SCH (21:09)
--- NOTE | 2024-11-29 21:09 | CARDIOLOGY REPORT ---
APPROVED REPORT EXAM: Comprehensive 2D, Doppler, and color-flow Echocardiogram. Patient Location: ER 6 Blood Pressure: 133/57 mmHg Heart Rate: 96-107 bpm Rhythm: SINUS w/FREQUENT PVCs Indications SHORTNESS OF BREATH ELEVATED PROBNP (1826) COPD Manager Medical Affairs: none Previous echo: none 2D Dimensions RVDd 5.1 cm LVOT Diameter 2.21 (1.8-2.4cm) Aortic Valve AoV Peak Jaison. 189.0 cm/s AoV VTI 36.5 cm AO Peak GR. 14.3 mmHg AO Mean GR. 9 mmHg LVOT VTI 21.83 cm LVOT Peak Jaison. 112.0 cm/s KYLAH(VTI)/BSA 2.30 cm2/m2 KYLAH (VTI) 2.30 cm2 Mitral Valve MV E Velocity 84.5 cm/s MV Peak Gr. 6 mmHg MV DECEL TIME 188 ms MV A Velocity 105.4 cm/s MV PHT 46 ms E/A Ratio 0.8 MVA (PHT) 4.78 cm2 MV SBkq858.4 cm/s LEFT VENTRICLE Normal LV size and wall thickness. Overall systolic function is normal. LVEF is 55-60%. RIGHT VENTRICLE RV is severely dilated with normal systolic function. ATRIA LA size appears normal. RA appears moderately dilated. AORTIC VALVE Trileaflet AV appears mildly sclerotic without stenosis or insufficiency. MITRAL VALVE Mild MV annular calcification without stenosis. Trace regurgitation. TRICUSPID VALVE TV appears structurally normal with trace regurgitation. PULMONIC VALVE Normal PV without stenosis, physiologic insufficiency. GREAT VESSELS The aortic root is normal in size. PERICARDIUM Normal pericardium. No effusion. Other Information Study Quality: Adequate
[2024-11-29] MEDS: methylPREDNISolone sod succ/PF 40mg inj. IV SCH (21:10)
[2024-11-29] MEDS: CefTRIAXone/D5W-Rocephin 1gm 50 ML IV SCH (21:10)
[2024-11-29 22:00] VITALS: BP 110/65; PULSE 80; RESP 20; TEMP 97.9; O2SAT 94
[2024-11-30] VITALS (11 sets, daily range): BP systolic 92–123; BP diastolic 50–67; PULSE 59–96; RESP 14–20; TEMP 97.6–98.1; O2SAT 90–98
[2024-11-30] MEDS: ipratropium/albuterol 3ml nebule NEB SCH (02:41)
--- NOTE | 2024-11-30 06:35 | ELECTROCARDIOGRAPH REPORT ---
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
[2024-11-30 07:01] LABS: BASOPHILS % (AUTO) 0.1 % (0-1); EOSINOPHILS % (AUTO) 0 % (0-6); HEMATOCRIT 38.9 % (42.0-52.0); HEMOGLOBIN 12.8 g/dl (14.0-17.9); LYMPHOCYTES # (AUTO) 0.3 X10'3 (1.1-4.8); LYMPHOCYTES % (AUTO) 5.6 % (21-51); MEAN CORPUSCULAR HEMOGLOBIN 31.2 PG (27.0-31.0); MEAN CORPUSCULAR HGB CONC 32.9 g/dL (33.0-36.5); MEAN CORPUSCULAR VOLUME 94.7 FL (78-98); MEAN PLATELET VOLUME 8.3 FL (7.4-10.4); MONOCYTES # (AUTO) 0.1 X10'3 (0-0.9); MONOCYTES % (AUTO) 1.5 % (2-12); NEUTROPHILS # (AUTO) 5.1 X10'3 (1.8-7.7); NEUTROPHILS % (AUTO) 92.8 % (42-75); PLATELET COUNT 201 X10'3 (140-440); RED BLOOD COUNT 4.11 X10'6 (4.70-6.10); RED CELL DISTRIBUTION WIDTH 14.4 % (11.5-14.5); WHITE BLOOD COUNT 5.5 X10'3 (4.5-11.0)
[2024-11-30] MEDS: pantoprazole 40mg Tablet.DR PO SCH (07:09)
[2024-11-30] MEDS: levoTHYROXINE 25mcg tablet PO SCH (07:10)
[2024-11-30 07:16] LABS: INR 1.2 INR; PROTHROMBIN TIME 11.8 SECONDS (9.0-12.0)
[2024-11-30 07:53] LABS: ALANINE AMINOTRANSFERASE 16 U/L (12-78); ALBUMIN 2.8 G/DL (3.4-5.0); ALBUMIN/GLOBULIN RATIO 0.9 (1.1-1.5); ANION GAP 12 (8-16); ASPARTATE AMINO TRANSFERASE 21 U/L (10-37); BILIRUBIN,TOTAL 0.2 MG/DL (0.1-1.0); BLOOD UREA NITROGEN 27 MG/DL (7-18); BUN/CREATININE RATIO 22.9 (10.0-20.0); CALCIUM 8.6 MG/DL (8.5-10.1); CHLORIDE 103 MMOL/L (99-107); CHOL/HDL RATIO 2.2 (0.00-4.99); CHOLESTEROL 166 MG/DL (0-200); CREATININE 1.18 MG/DL (0.60-1.10); GLUCOSE 162 MG/DL (70-104); HDL CHOLESTEROL 74 MG/DL (35-60); LDL CHOLESTEROL 75 MG/DL (50-100); MAGNESIUM 2.2 MG/DL (1.5-2.4); SODIUM 141 MMOL/L (135-145); TOTAL PROTEIN 5.9 G/DL (6.4-8.2); TRIGLYCERIDES 67 MG/DL (20-135); eCRCL 42 ML/MIN; eGFR 58 ML/MIN
[2024-11-30 07:54] LABS: ALKALINE PHOSPHATASE 1152 IU/L (46-116)
[2024-11-30] MEDS: furosemide 40mg/4ml inj IV SCH (08:00)
[2024-11-30] MEDS ORDERED: emollient combination-Eucerin 200 ML LOTION TP SCH (12:15)
[2024-11-30] MEDS: EMPAGLIFLOZIN 10 MG TABLET PO SCH (13:14)
--- NOTE | 2024-11-30 15:14 | PROGRESS NOTE- Residence ---
Progress Note - Resident Providers to CC Resident Creating Document: ASJAN IGNACIO, RES ~ Antibiotic Timeout Antibiotic Ordered?: Yes Subjective The patient has been evaluated at the bedside. The patient reports significant improvement of his symptoms specialist and shortness of breaths. Objective Vital Signs Date Time Temp Pulse Resp B/P (MAP) Pulse Ox O2 Delivery O2 Flow Rate FiO2 11/30/24 10:00 97.9 95 18 123/67 (85) 95 Nasal Cannula 2.0 11/30/24 02:42 28 Physical exam: General: Well alert, well oriented, not confused, not agitated, not in acute distress, well cooperated during the physical. HEENT: Conjunctive are pink, sclerae clear, no icterus, pupil is equal in both sides, reactive to light, no ear discharge, no pharyngeal erythema or an edema. Neck: Supple, no JVD, no lymphadenopathy and thyromegaly. Chest: Equal air entry on both lungs, presence of mild diffuse wheezing bilaterally-improved. Cardiovascular: S1-S2 regular sinus rhythm and, regular rate, no gallops, no rubs, no murmurs Abdomen: No visible peristalsis, Bowel sounds present on auscultation, soft, nontender, no guarding, no rigidity, ventral hernia reducible is evidenced. Extremities: No obvious deformities, 3+ pedal edema in left lower extremity, associated redness and warm to the touch, capillary refill intact, peripheral pulsations are intact on both sides Central Nervous System: No focal neurological deficits, no motor or sensory weakness in all 4 extremities, could move all 4 extremities, 2+ deep tendon reflexes, negative Babinski. Musculoskeletal: No joint swelling, deformities, inflammations, and no scoliosis and back tenderness Skin: 3+ pedal edema edema in left lower extremity associated with redness and warm to touch. Result Diagram: 11/30/24 0632 11/30/24 0632 Coagulation Studies Laboratory Tests Test 11/29/24 15:45 11/30/24 06:32 D-Dimer 7.83 MG/L FEU (0-0.50) H D-Dimer Comment Prothrombin Time 11.8 SECONDS (9.0-12.0) INR International Normalized Ratio 1.2 INR Coagulation Comments Assessment Assessment 89 years old male patient came to the hospital with chief complaint of shortness of breaths, left lower extremity swelling. 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 On physical exam mild diffuse wheezing bilaterally is evidenced. The patient usually uses 2 L of oxygen at home on and off, lately he has been using oxygen all the time. D-dimer 7.83. Influenza type a and B, RSV: Negative. Pending COVID-19. CTA of the chest/abdomen/pelvis: No pulmonary embolus, thoracic aortic dissection, or thoracic aortic aneurysm. Retroperitoneal and left pelvic lymphadenopathy and numerous sclerotic bony lesions concerning for metastases. Moderate left hydronephrosis with a possible left mid ureteral stenosis. Colonic diverticulosis. A moderate amount of stool in the colon may represent constipation. Centrilobular emphysema. Given one dose of methylprednisolone 125 mg IV. Ceftriaxone 1 g daily. day 2. Azithromycin 500 mg daily day 2. We will stop tomorrow. Incentive spirometry every 2 hours while awake. Culturelle 74525 mmu b.i.d. DuoNeb q.4h hours PRN. DuoNeb q.6h scheduled. Methylprednisolone 30 mg b.i.d. Lasix 20 mg IV daily. Jardiance 10 mg daily. Left lower extremity swelling: Possible lymphedema: Superimposed bacterial cellulitis: DVT-ruled out: The patient endorses that he was taking out his skin. Redness, warm to the touch and 3+ pedal edema were evidenced on physical exam. CTA of the chest/abdomen/pelvis: No pulmonary embolus, thoracic aortic dissection, or thoracic aortic aneurysm. Retroperitoneal and left pelvic lymphadenopathy and numerous sclerotic bony lesions concerning for metastases. Moderate left hydronephrosis with a possible left mid ureteral stenosis. Colonic diverticulosis. A moderate amount of stool in the colon may represent constipation. Centrilobular emphysema. Vascular ultrasound: The left lower extremity deep venous thrombosis. Procalcitonin within reference range, follow-up blood cultures. Marked area of redness. Emollient cream topical. Ceftriaxone 1 g daily. Hyperglycemia: Prediabetes: Glucose levels 105. Hemoglobin A1c 5.8. Continue monitoring glucose levels. Currently on Jardiance 10 mg. Hypothyroidism: TSH: 2.38. Levothyroxine 25 mcg daily. BPH: Tamsulosin 0.4 mg daily. GERD: Pantoprazole 40 mg daily. Code status: Full code DVT prophylaxis: SCDs Analgesia/sedation: None Line/tube: PIV GI prophylaxis: Protonix Nutrition: Regular diet PT: Yes Prognosis: Guarded Disposition: Continue medical management. Anticipated discharge tomorrow. Sajan Iqbal Internal Medicine Resident [facility] Date of Service: Nov 30, 2024 Billing Provider: CLARISSA REDDY MD, FRANCO LUIS, RES Nov 30, 2024 15:14
[2024-11-30] MEDS: NETARSUDIL MESYLAT RIGHTEYE SCH (20:45)
[2024-11-30] MEDS: LATANOPROST RIGHTEYE SCH (20:45)
[2024-12-01] VITALS (13 sets, daily range): BP systolic 99–109; BP diastolic 51–57; PULSE 52–85; RESP 14–21; TEMP 97.9–98.6; O2SAT 91–97
[2024-12-01] MEDS: Melatonin 3mg tablet PO ONE (01:34)
[2024-12-01 04:21] LABS: BASOPHILS % (AUTO) 0.1 % (0-1); EOSINOPHILS % (AUTO) 0 % (0-6); HEMATOCRIT 35.7 % (42.0-52.0); LYMPHOCYTES # (AUTO) 0.6 X10'3 (1.1-4.8); LYMPHOCYTES % (AUTO) 4.5 % (21-51); MEAN CORPUSCULAR HEMOGLOBIN 31.8 PG (27.0-31.0); MEAN CORPUSCULAR HGB CONC 33.7 g/dL (33.0-36.5); MEAN CORPUSCULAR VOLUME 94.6 FL (78-98); MEAN PLATELET VOLUME 8.4 FL (7.4-10.4); MONOCYTES % (AUTO) 8.4 % (2-12); NEUTROPHILS # (AUTO) 10.6 X10'3 (1.8-7.7); PLATELET COUNT 214 X10'3 (140-440); RED BLOOD COUNT 3.78 X10'6 (4.70-6.10); RED CELL DISTRIBUTION WIDTH 14.6 % (11.5-14.5); WHITE BLOOD COUNT 12.2 X10'3 (4.5-11.0)
[2024-12-01 04:40] LABS: ALANINE AMINOTRANSFERASE 16 U/L (12-78); ALBUMIN 2.7 G/DL (3.4-5.0); ANION GAP 5 (8-16); ASPARTATE AMINO TRANSFERASE 22 U/L (10-37); BILIRUBIN,TOTAL 0.2 MG/DL (0.1-1.0); BLOOD UREA NITROGEN 36 MG/DL (7-18); BUN/CREATININE RATIO 23.7 (10.0-20.0); CALCIUM 8.2 MG/DL (8.5-10.1); CHLORIDE 104 MMOL/L (99-107); CREATININE 1.52 MG/DL (0.60-1.10); GLUCOSE 124 MG/DL (70-104); MAGNESIUM 2.4 MG/DL (1.5-2.4); POTASSIUM 4.8 MMOL/L (3.5-5.1); SODIUM 137 MMOL/L (135-145); TOTAL CARBON DIOXIDE 27.7 MMOL/L (24-32); TOTAL PROTEIN 5.5 G/DL (6.4-8.2); eCRCL 33 ML/MIN; eGFR 43 ML/MIN
[2024-12-01 04:41] LABS: ALKALINE PHOSPHATASE 1033 IU/L (46-116)
[2024-12-01] MEDS: normal saline 1000ml 1,000 ML IV SCH (07:40)
[2024-12-01] MEDS ORDERED: furosemide 40mg/4ml inj IV SCH (08:00)
[2024-12-01] MEDS: ondansetron/PF 4mg/2ml inj IV PRN (09:38)
[2024-12-01] MEDS: methylPREDNISolone sod succ/PF 40mg inj. IV SCH (09:39)
[2024-12-01] MEDS: mineral oil/petrolatum, white cream 113gm jar TP SCH (09:40)
[2024-12-01] MEDS: magnesium hydroxide 30ml (MOM) UD suspension PO PRN (09:40)
[2024-12-01 11:56] LABS: TOTAL PROTEIN,URINE RANDOM 42.1 MG/DL
--- NOTE | 2024-12-01 13:35 | PROGRESS NOTE- Residence ---
Progress Note - Resident Providers to CC Resident Creating Document: SAJAN IGNACIO, KERRY ~ Antibiotic Timeout Antibiotic Ordered?: Yes Subjective The patient has been evaluated at the bedside. The patient is currently without any complaints. Objective Vital Signs Date Time Temp Pulse Resp B/P (MAP) Pulse Ox O2 Delivery O2 Flow Rate FiO2 12/01/24 10:00 98.1 65 18 103/51 (68) 94 Nasal Cannula 3.0 12/01/24 08:41 40 Physical exam: Physical exam: General: Well alert, well oriented, not confused, not agitated, not in acute distress, well cooperated during the physical. HEENT: Conjunctive are pink, sclerae clear, no icterus, pupil is equal in both sides, reactive to light, no ear discharge, no pharyngeal erythema or an edema. Neck: Supple, no JVD, no lymphadenopathy and thyromegaly. Chest: Equal air entry on both lungs, presence of mild diffuse wheezing bilaterally-improved. Cardiovascular: S1-S2 regular sinus rhythm and, regular rate, no gallops, no rubs, no murmurs Abdomen: No visible peristalsis, Bowel sounds present on auscultation, soft, nontender, no guarding, no rigidity, ventral hernia reducible is evidenced. Extremities: No obvious deformities, 3+ pedal edema in left lower extremity, associated redness and warm to the touch, capillary refill intact, peripheral pulsations are intact on both sides Central Nervous System: No focal neurological deficits, no motor or sensory weakness in all 4 extremities, could move all 4 extremities, 2+ deep tendon reflexes, negative Babinski. Musculoskeletal: No joint swelling, deformities, inflammations, and no scoliosis and back tenderness Skin: 2+ pedal edema edema in left lower extremity associated with redness and warm to touch. Result Diagram: 12/01/24 0336 12/01/24 0336 Coagulation Studies Laboratory Tests Test 11/29/24 15:45 11/30/24 06:32 D-Dimer 7.83 MG/L FEU (0-0.50) H D-Dimer Comment Prothrombin Time 11.8 SECONDS (9.0-12.0) INR International Normalized Ratio 1.2 INR Coagulation Comments Assessment Assessment 89 years old male patient came to the hospital with chief complaint of shortness of breath, left lower extremity swelling. 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 On physical exam mild diffuse wheezing bilaterally is evidenced. The patient usually uses 2 L of oxygen at home on and off, lately he has been using oxygen all the time. D-dimer 7.83 on 11/29/2024. Influenza type a and B, RSV and COVID-19: Negative. CTA of the chest/abdomen/pelvis: No pulmonary embolus, thoracic aortic dissection, or thoracic aortic aneurysm. Retroperitoneal and left pelvic lymphadenopathy and numerous sclerotic bony lesions concerning for metastases. Moderate left hydronephrosis with a possible left mid ureteral stenosis. Colonic diverticulosis. A moderate amount of stool in the colon may represent constipation. Centrilobular emphysema. Given one dose of methylprednisolone 125 mg IV. Ceftriaxone 1 g daily. day 3. Completed three dose of azithromycin. Stopped today. Incentive spirometry every 2 hours while awake. Culturelle 65001 mmu b.i.d. DuoNeb q.4h hours PRN. DuoNeb q.6h scheduled. Methylprednisolone 30 mg b.i.d. Jardiance 10 mg daily. Left lower extremity swelling: Possible lymphedema: Superimposed bacterial cellulitis: DVT-ruled out: The patient endorses that he was taking out his skin. Redness, warm to the touch and 3+ pedal edema were evidenced on physical exam. CTA of the chest/abdomen/pelvis: No pulmonary embolus, thoracic aortic dissection, or thoracic aortic aneurysm. Retroperitoneal and left pelvic lymphadenopathy and numerous sclerotic bony lesions concerning for metastases. Moderate left hydronephrosis with a possible left mid ureteral stenosis. Colonic diverticulosis. A moderate amount of stool in the colon may represent constipation. Centrilobular emphysema. Vascular ultrasound: The left lower extremity deep venous thrombosis. Procalcitonin within reference range, follow-up blood cultures. Marked area of redness-improving. Emollient cream topical. Ceftriaxone 1 g daily. Acute kidney injury likely secondary to renal tubular stasis: POA. Creatinine 152, GFR 43, BUN/creatinine ratio 23.7. Urine lytes: FeNa: 0.3%, FeUrea: 1.9%, UA/serum osmolality: 1.85. Indicative of prerenal. NS at 80 mL/hour. Hyperglycemia: Prediabetes: Glucose levels 105. Hemoglobin A1c 5.8. Continue monitoring glucose levels. Currently on Jardiance 10 mg. Hypothyroidism: TSH: 2.38. Levothyroxine 25 mcg daily. BPH: Tamsulosin 0.4 mg daily. GERD: Pantoprazole 40 mg daily. Code status: Full code DVT prophylaxis: SCDs Analgesia/sedation: None Line/tube: PIV GI prophylaxis: Protonix Nutrition: Regular diet PT: Recommends post-acute care. Prognosis: Guarded Disposition: Continue medical management. Anticipated discharge tomorrow to [facility] PCU. Sajan Iqbal Internal Medicine Resident [facility] Date of Service: Dec 01, 2024 Billing Provider: CLARISSA REDDY MD,SAJAN LUEVANO, RES Dec 01, 2024 13:35
[2024-12-02 02:50] VITALS: PULSE 77; RESP 16; O2SAT 95
[2024-12-02 02:57] VITALS: PULSE 72; RESP 16
[2024-12-02 04:48] LABS: BASOPHILS % (AUTO) 0 % (0-1); EOSINOPHILS % (AUTO) 0 % (0-6); HEMATOCRIT 35.3 % (42.0-52.0); HEMOGLOBIN 11.9 g/dl (14.0-17.9); LYMPHOCYTES # (AUTO) 0.4 X10'3 (1.1-4.8); LYMPHOCYTES % (AUTO) 4.9 % (21-51); MEAN CORPUSCULAR HEMOGLOBIN 31.9 PG (27.0-31.0); MEAN CORPUSCULAR HGB CONC 33.7 g/dL (33.0-36.5); MEAN CORPUSCULAR VOLUME 94.8 FL (78-98); MEAN PLATELET VOLUME 8.2 FL (7.4-10.4); MONOCYTES # (AUTO) 0.4 X10'3 (0-0.9); MONOCYTES % (AUTO) 4.4 % (2-12); NEUTROPHILS # (AUTO) 8.2 X10'3 (1.8-7.7); NEUTROPHILS % (AUTO) 90.7 % (42-75); PLATELET COUNT 200 X10'3 (140-440); RED BLOOD COUNT 3.72 X10'6 (4.70-6.10); RED CELL DISTRIBUTION WIDTH 14.5 % (11.5-14.5); WHITE BLOOD COUNT 9.1 X10'3 (4.5-11.0)
[2024-12-02 05:16] LABS: ALANINE AMINOTRANSFERASE 17 U/L (12-78); ALBUMIN 2.7 G/DL (3.4-5.0); ALKALINE PHOSPHATASE 956 IU/L (46-116); ANION GAP 4 (8-16); ASPARTATE AMINO TRANSFERASE 18 U/L (10-37); BILIRUBIN,TOTAL 0.2 MG/DL (0.1-1.0); BLOOD UREA NITROGEN 46 MG/DL (7-18); BUN/CREATININE RATIO 36.2 (10.0-20.0); CHLORIDE 106 MMOL/L (99-107); CREATININE 1.27 MG/DL (0.60-1.10); GLUCOSE 130 MG/DL (70-104); MAGNESIUM 2.6 MG/DL (1.5-2.4); POTASSIUM 5.5 MMOL/L (3.5-5.1); SODIUM 138 MMOL/L (135-145); TOTAL CARBON DIOXIDE 27.6 MMOL/L (24-32); TOTAL PROTEIN 5.4 G/DL (6.4-8.2); eCRCL 39 ML/MIN; eGFR 54 ML/MIN
[2024-12-02 06:00] VITALS: BP 103/64; PULSE 63; RESP 16; TEMP 97.3; O2SAT 96
[2024-12-02 08:36] VITALS: PULSE 74; RESP 16; O2SAT 96
[2024-12-02 08:46] VITALS: PULSE 72; RESP 16
[2024-12-02 10:00] VITALS: BP 102/63; PULSE 54; RESP 19; TEMP 98.1; O2SAT 94
[2024-12-02] MEDS: bisacodyl 10mg suppository rectal RC STA (11:35)
[2024-12-02] MEDS: polyethylene glycol 3350 17gm powd pack PO SCH (12:36)
--- NOTE | 2024-12-02 15:58 | DISCHARGE SUMMARY-Residence ---
Discharge Summary Providers to CC Resident Creating Document: YUSRA MCKEONRAMONE, RES ~ Discharge Summary Admission Diagnosis: SOB Hospital Course DATE OF ADMISSION: 11/29/2024 DATE OF DISCHARGE: 12/01/2024 Laboratory: WBC 9.1, hemoglobin 11.9, hematocrit 35.3, MCV 94.8, platelet 200, sodium 138, potassium 5.5, chloride 106, carbon dioxide 27.6, BUN 46, creatinine 1.27, GFR 54, glucose 130, A1c 5.8. Imaging: Chest/thorax CTA: No pulmonary embolus, thoracic aortic dissection, or thoracic aortic aneurysm. Retroperitoneal and left pelvic lymphadenopathy and numerous sclerotic bony lesions concerning for metastases. Moderate left hydronephrosis with a possible left mid ureteral stenosis. Colonic diverticulosis. A moderate amount of stool in the colon may represent constipation. Centrilobular emphysema. Abdomen/pelvis CT: No pulmonary embolus, thoracic aortic dissection, or thoracic aortic aneurysm. Retroperitoneal and left pelvic lymphadenopathy and numerous sclerotic bony lesions concerning for metastases. Moderate left hydronephrosis with a possible left mid ureteral stenosis. Colonic diverticulosis. A moderate amount of stool in the colon may represent constipation. Centrilobular emphysema. Echocardiogram: Normal LV size and wall thickness. Overall systolic function is normal. LVEF is 55-60%. RV is severely dilated with normal systolic function. LA size appears normal. RA appears moderately dilated. Chest x-ray: Improving atelectasis left lung base compared to 01/27/2024. Vascular ultrasound: No left lower extremity deep venous thrombosis. 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 Hyperglycemia Prediabetes Hypothyroidism BPH GERD Operations\Procedures: None Consultants: None Complications: None Condition on DC: Stable for transfer Discharge Summary: HPI: 89-year-old male patient with past medical history of COPD, hypothyroidism, benign prostatic hyperplasia came to the hospital with chief complaint of shortness of breaths. Patient mentioned that he had a diagnosed history of COPD with 25% lung capacity left diagnosed 10 years ago. The patient mentioned that during the last 3-4 days ago he started having increase difficulty for breathing, prompting him to start using oxygen 2 L. he mentioned that regularly has been using oxygen at home for several years on and off, at the same time he also endorses a chronic cough but the last week he has been coughing more frequently and spitting up a yellowish sputum. He mentioned that he sleeps with one pillow, normally he is able to walk 40 ft before he gets short of breath, since the last week has been able to walk four steps. Associated to these symptom the patient also mentioned left lower extremity swelling which started two months ago, after the physical exam redness and some crusts were noticed and the patient endorses that he has been taking his skin off and scratching. The patient currently denies chest pain, palpitations, urinary or intestinal symp toms. Hospital course: 89-year-old male patient came to the hospital with chief complaint of shortness of breath. The patient was admitted with acute on chronic hypoxemic respiratory failure, multifactorial. Acute exacerbation of COPD, acute on chronic right- sided diastolic heart failure stage C/NYHA Class III. Due to elevated D-dimer, elevated well's score and acute symptoms pulmonary embolism was ruled out. The patient received treatment based on ceftriaxone, azithromycin, DuoNebs, systemic steroids. The patient reports significant improvement. Associated to his shortness of breath, the patient also had unilateral lower extremity swelling, possible lymphedema with superimposed bacterial cellulitis. DVT was ruled out. Acute kidney injury likely secondary to renal tubular stasis also was noted, the patient was treated with IV fluids, completely resolved. The patient remained hemodynamically stable. Physical therapy evaluated the patient and recommended LTAC. The patient will be discharged to [facility]. Discharge course: The patient remained hemodynamically stable. The patient will be discharged with the following instructions: Follow-up CBC and CMP in two weeks. Follow-up with primary care physician within 15 days. Follow-up with quality compliance manager within one month. Compression socks for lymphedema. Follow-up with Dr. Shah within 15 days. Continue your home medication, we added Jardiance 10 mg daily. Take Culturelle 92567 mmu twice daily for one month. Apply topical emollient ulcer in cream in lower extremity 3 times a day. Vital Signs Date Time Temp Pulse Resp B/P (MAP) Pulse Ox O2 Delivery O2 Flow Rate FiO2 12/02/24 10:00 98.1 54 19 102/63 (76) 94 Nasal Cannula 2.5 12/02/24 08:36 32 Physical exam: General: Well alert, well oriented, not confused, not agitated, not in acute distress, well cooperated during the physical. HEENT: Conjunctive are pink, sclerae clear, no icterus, pupil is equal in both sides, reactive to light, no ear discharge, no pharyngeal erythema or an edema. Neck: Supple, no JVD, no lymphadenopathy and thyromegaly. Chest: Equal air entry on both lungs, presence of mild diffuse wheezing bilaterally-improved. Cardiovascular: S1-S2 regular sinus rhythm and, regular rate, no gallops, no rubs, no murmurs Abdomen: No visible peristalsis, Bowel sounds present on auscultation, soft, nontender, no guarding, no rigidity, ventral hernia reducible is evidenced. Extremities: No obvious deformities, 3+ pedal edema in left lower extremity, associated redness and warm to the touch, capillary refill intact, peripheral pulsations are intact on both sides Central Nervous System: No focal neurological deficits, no motor or sensory weakness in all 4 extremities, could move all 4 extremities, 2+ deep tendon reflexes, negative Babinski. Musculoskeletal: No joint swelling, deformities, inflammations, and no scoliosis and back tenderness Skin: 2+ pedal edema edema in left lower extremity associated with redness and warm to touch. *Problems/Diagnosis: (1) Cor pulmonale Status: Chronic (2) BPH (benign prostatic hyperplasia) (3) Hypothyroidism Status: Chronic (4) Prediabetes Status: Chronic (5) Acute kidney injury Status: Acute (6) Cellulitis Status: Acute (7) Lymphedema Status: Chronic (8) Acute on chronic congestive heart failure with right ventricular diastolic dysfunction Status: Acute (9) COPD exacerbation Status: Acute Total Time Spent on D/C: Up to 30 Minutes Date of Service: Dec 02, 2024 Billing Provider: CLARISSA REDDY MD, FRANCO LUIS, RES Dec 02, 2024 15:50
--- NOTE | 2024-12-03 10:01 | ELECTROCARDIOGRAPH REPORT ---
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 Gallo Ambrocio Measurements Intervals [place] Rate: 93 P: 78 [place]: 145 QRS: 75 QRSD: 81 T: 76 QT: 385 QTc: 479 Interpretive Statements Sinus tachycardia Ventricular trigeminy Borderline prolonged QT interval Baseline wander in lead(s) V6 Electronically Signed On 11-30-2024 19:02:[address] Gallo Ambrocio Please click the below link to view image of tracing.
== END 2024-12-02 15:02 | DRG 291 ==
LOC: ER 15:36 → ED HOLD 17:19 → ORTHO 4S 21:00
PROVIDERS: ADMIT Family Medicine; ATTEND Family Medicine
PROC: BW211ZZ Computerized Tomography (CT Scan) of Abdomen and Pelvis using Low Osmolar Contrast (ICD-10-PCS; principal; 2024-11-29)
PROC: BW251ZZ Computerized Tomography (CT Scan) of Chest, Abdomen and Pelvis using Low Osmolar Contrast (ICD-10-PCS; 2024-11-29)
DX: I50.33 Acute on chronic diastolic (congestive) heart failure (principal); J96.21 Acute and chronic respiratory failure with hypoxia; N17.0 Acute kidney failure with tubular necrosis; L03.116 Cellulitis of left lower limb; J44.1 Chronic obstructive pulmonary disease with (acute) exacerbation; I50.813 Acute on chronic right heart failure; I27.81 Cor pulmonale (chronic); B96.89 Other specified bacterial agents as the cause of diseases classified elsewhere; R73.03 Prediabetes; E03.9 Hypothyroidism, unspecified; Z20.822 Contact with and (suspected) exposure to COVID-19; N40.0 Benign prostatic hyperplasia without lower urinary tract symptoms; I89.0 Lymphedema, not elsewhere classified; R73.9 Hyperglycemia, unspecified; K21.9 Gastro-esophageal reflux disease without esophagitis; Z87.891 Personal history of nicotine dependence; Z82.49 Family history of ischemic heart disease and other diseases of the circulatory system; Z88.8 Allergy status to other drugs, medicaments and biological substances; Z86.73 Personal history of transient ischemic attack (TIA), and cerebral infarction without residual deficits
CPT/HCPCS: 36415; 71045; 71275; 74177; 80053; 80061; 81003; 82570; 83036; 83605; 83735; 83880; 83930; 83935; 84145; 84156; 84300; 84443; 84484; 84540; 85025; 85379; 85610; 85651; 86140; 87040; 87081; 87207; 87502; 87503; 87811; 93005; 93306; 93971; 94640; 94760; 97110; 97116; 97162; 99285; A6212; A6258; G0378; J0696; J1940; J2405; J2919; J7030; J7040; Q9967